=== PATIENT | female | born 1950 | race American Indian/Alaskan Native ===

== ENCOUNTER 2018-05-12 13:02 | Emergency (ER) | payer BC, OTHER ==
[2018-05-12 13:02] VITALS: BMI 40.4
[2018-05-12] MEDS ORDERED: Naproxen 550 mg Tab PO STA (13:49)
--- NOTE | 2018-05-12 13:56 | ED PDOC ---
Arrival/HPI - General Chief Complaint: Lower Extremity Problem/Injury Time Seen by Provider: 05/12/18 13:41 Historian: Patient, Family - History of Present Illness Narrative History of Present Illness (Text): 05/12/18 13:51 Pt is a 68 yr old female with PMH of DMII who presents to the ED c/o left thigh and LBP after walking to the gym and spin class. Pt says she woke up today with intense pain in her left thigh that travels to the left LS area but is not quite sure if it starts in her back first. Says the pain is worse on standing and walking and improves with sitting and rest. Denies trauma or a fall, no head injury, denies fever, n/v/d numbness of the lower extremities, change in bowel or bladder, or recent travel. Pt is requesting food and says she only had a banana this morning. Time/Duration: 24 hours Symptom Onset: Sudden Symptom Course: Unchanged Quality: Aching Severity Level: 6 Activities at Onset: Light Context: Standing, Walking, Exertion Past Medical History - Provider Review Nursing Documentation Reviewed: Yes - Travel History Have you recently traveled outside [place] w/in the past 3 mons?: No - Infectious Disease Hx of Infectious Diseases: None - Tetanus Immunization Tetanus Immunization: Unknown - Past Medical History Past Medical History: No Previous - Cardiac Hx Cardiac Disorders: No - Pulmonary Hx Respiratory Disorders: No - Neurological Hx Neurological Disorder: No - HEENT Hx HEENT Disorder: No - Renal Hx Renal Disorder: No - Endocrine/Metabolic Hx Endocrine Disorders: Yes Hx Diabetes Mellitus Type 2: Yes - Hematological/Oncological Hx Blood Disorders: No - Integumentary Hx Dermatological Disorder: No - Musculoskeletal/Rheumatological Hx Musculoskeletal Disorders: No - Gastrointestinal Hx Gastrointestinal Disorders: No - Genitourinary/Gynecological Hx Genitourinary Disorders: No - Psychiatric Hx Psychophysiologic Disorder: No Hx Substance Use: No - Surgical History Other/Comment: fibroid tumor removal - Anesthesia Hx Anesthesia: No Hx Anesthesia Reactions: No Hx Malignant Hyperthermia: No - Suicidal Assessment Feels Threatened In Home Enviroment: No Family/Social History - Physician Review Nursing Documentation Reviewed: Yes Family/Social History: Unknown Family HX Smoking Status: Never Smoked Hx Alcohol Use: No Hx Substance Use: No Hx Substance Use Treatment: No Allergies/Home Meds Allergies/Adverse Reactions: Allergies No Known Allergies Allergy (Verified 05/12/18 13:05) Home Medications: Home Meds Medication Instructions Recorded Confirmed Metformin HCl [Metformin] 1,000 mg PO BID 04/02/15 05/12/18 Review of Systems - Review of Systems Constitutional: Normal Eyes: Normal ENT: Normal Respiratory: Normal Cardiovascular: Normal Gastrointestinal: Normal Genitourinary Female: Normal Musculoskeletal: Normal, Arthralgias, Back Pain (low back and buttocks), Myalgias Skin: Normal Neurological: Normal Endocrine: Normal Hemo/Lymphatic: Normal Psychiatric: Normal Physical Exam Vital Signs Reviewed: Yes Vital Signs Temp Pulse Resp BP Pulse Ox 05/12/18 16:26 98 F 75 19 156/52 H 99 05/12/18 16:00 98.6 F 75 19 159/82 H 99 05/12/18 14:51 98 F 85 19 174/63 H 96 05/12/18 13:05 99.0 F 73 16 195/78 H 98 Temperature: Afebrile Blood Pressure: Hypertensive Pulse: Regular Respiratory Rate: Normal Appearance: Positive for: Well-Appearing, Non-Toxic, Comfortable Pain Distress: Moderate Mental Status: Positive for: Alert and Oriented X 3 - Systems Exam Head: Present: Atraumatic, Normocephalic Pupils: Present: PERRL Extroacular Muscles: Present: EOMI Conjunctiva: Present: Normal Mouth: Present: Moist Mucous Membranes Neck: Present: Normal Range of Motion. No: Paraspinal Tenderness Respiratory/Chest: Present: Clear to Auscultation, Good Air Exchange. No: Respiratory Distress, Accessory Muscle Use Cardiovascular: Present: Regular Rate and Rhythm, Normal S1, S2. No: Murmurs Abdomen: No: Tenderness, Distention, Peritoneal Signs Back: Present: Normal Inspection, Paraspinal Tenderness (left SI jt pain ), Other (positive left ARIAN ). No: CVA Tenderness, Midline Tenderness, Pain with Leg Raise Upper Extremity: Present: Normal Inspection, Normal ROM, NORMAL PULSES. No: Cyanosis, Edema Lower Extremity: Present: Normal Inspection, NORMAL PULSES, Normal ROM, Neurovascularly Intact, Capillary Refill < 2 s. No: Edema, CALF TENDERNESS, Cyanosis, Jarek's Sign, Tenderness, Swelling, Erythema, Temperature Abnormalties Neurological: Present: GCS=15, CN II-XII Intact, Speech Normal, Motor Func Grossly Intact, Normal Sensory Function Skin: Present: Warm, Dry, Normal Color. No: Rashes Psychiatric: Present: Alert, Oriented x 3, Normal Insight, Normal Concentration Medical Decision Making ED Course and Treatment: 05/12/18 13:57 Impression Pt is a 68 yr old female with PMH of DMII who presents to the ED c/o left thigh and LBP after riding her bike to the gym the other day. (+) ARIAN L side, (-) SLR, (-) Jarek's and no calf tenderness bilateral, SILT with distal pulses 2+ bilateral LE Plan CT of LS Naprosyn for pain and inflammation Progress Note Pt ate a granola bar and proceeded to vomit x4 times then had some water 05/12/18 15:42 CT of LS indicates joint space narrowing and disc bulge at L3-L4 Discussed findings with pt and friend at bedside; pt added that she actually walked a lot in the last 2 days and also did a 40 min spin class yesterday; she feels that she strained herself. Advised to take naprosyn q12 and use wet heat at home on the thigh, and lidocaine patches q24hrs as needed f/u with PMD in the next few days; may require MRI and PT VSS on dc and ambulated well 05/12/18 22:55 - RAD Interpretation Radiology Orders: 05/12/18 13:45 LUMBAR SPINE W/O CONTRAST [CT] Stat - Medication Orders Current Medication Orders: Discontinued Medications Naproxen (Anaprox Ds) 550 mg PO STAT STA Stop: 05/12/18 13:50 Last Admin: 05/12/18 14:52 Dose: 550 mg Disposition/Present on Arrival - Present on Arrival Any Indicators Present on Arrival: Yes History of DVT/PE: No History of Uncontrolled Diabetes: No Urinary Catheter: No History of Decub. Ulcer: No History Surgical Site Infection Following: None - Disposition Have Diagnosis and Disposition been Completed?: Yes Diagnosis: Muscle strain of gluteal region, Sacroiliac inflammation, Disc degeneration, lumbar, Bulging of intervertebral disc Disposition: HOME/ ROUTINE Disposition Time: 15:50 Patient Plan: Discharge Condition: GOOD Discharge Instructions (ExitCare): Low Back Pain (DC), Muscle Strain (DC) Additional Instructions: INESSA WILLS, thank you for letting us take care of you today. Your provider was Roxanne Simmons MD and you were treated for MUSCLE STRAIN AND LOW BACK PAIN. The emergency medical care you received today was directed at your acute symptoms. If you were prescribed any medication, please fill it and take as directed. It may take several days for your symptoms to resolve. Return to the Emergency Department if your symptoms worsen, do not improve, or if you have any other problems. Continue to be active but make sure to not over do it and take a break when you need to If pain continues, ask your doctor to order an MRI and Physical Therapy To assist thigh and back pain healing, wet a towel with very warm water, wring it out and place it over the affected area Please contact your doctor or call one of the physicians/clinics you have been referred to that are listed on the Patient Visit Information form that is included in your discharge packet. Bring any paperwork you were given at discharge with you along with any medications you are taking to your follow up visit. Our treatment cannot replace ongoing medical care by a primary care provider outside of the emergency department. Thank you for allowing the [facility] team to be part of your care today. If you had an X-Ray or CT scan: A Radiologist will review the ED reading if any change in treatment is needed we will contact you. Prescriptions: Lidocaine 1 each TP DAILY 5 Days #5 adh..patch Naproxen 500 mg PO Q12 #10 tablet Forms: [employer] (Italian)
[2018-05-12 14:58] VITALS: RESP 19
--- NOTE | 2018-05-12 15:11 | CT ---
PROCEDURE: CT Lumbar Spine without contrast HISTORY: Back pain and leg weakness COMPARISON: None. TECHNIQUE: Axial computed tomography images were obtained of the lumbar spine without the use of intravenous contrast. Coronal and sagittal reformatted images were created and reviewed. Radiation dose: Total exam DLP = 1537.96 mGy-cm. This CT exam was performed using one or more of the following dose reduction techniques: Automated exposure control, adjustment of the mA and/or kV according to patient size, and/or use of iterative reconstruction technique. FINDINGS: VERTEBRAE: Unremarkable. No fracture. Normal alignment. DISCS/SPINAL CANAL/NEURAL FORAMINA: Multilevel degenerative spondylosis. L1-2: Disc space narrowing more so along the posterior disc margin with small amount of vacuum phenomena. . Broad-based broad-based disc ridge complex associate with a tiny calcification along the right parasagittal posterior annulus. Mild compressive effects on the ventral surface of the thecal sac however the disc is quite large along the right posterolateral border and results in stenosis right lateral recess stenosis and right foraminal stenosis. . Facets are slightly overgrown. . L2-3: There is disc space narrowing more so along the posterior disc margin with moderate-sized disc ridge complex that extends into the inferior margins of both exit foramina. There is bilateral lateral recess and mild central canal stenosis. . Facet joints are hypertrophic. Exit foramina are narrowed bilaterally right greater than left. L3-4: Mild posterior disc space narrowing. Small broad-based disc bulge ridge complex asymmetrically larger on the right side than left with some flattening of the ventral surface of the thecal sac more so on the right. Small amount of vacuum disc phenomena present. Central canal appears adequate. Facets are mildly hypertrophic. Exit foramina are mildly narrowed right greater than left. . L4-5: Mild disc space narrowing more so along the posterior disc margin with endplate eburnation/ sclerosis. . . Broad-based disc ridge complex associated with a calcification along the posterior annulus more so on the right side results in compressive effects on the ventral surface of the thecal sac more so on the right side. The facets are hypertrophic with focal calcification along the left ligamentum flavum. There is some mild to moderate central canal stenosis. Exit foramina are stenotic right greater than left. L5-S1: Mild disc space narrowing with small amount of vacuum disc phenomena. . Small broad-based bulge of the posterior annulus (with small calcification along the posterior margin of the annulus) extends into the proximal inferior margins of both exit foramina. The facet joints are hypertrophic. Bilateral lateral recess narrowing with mild flattening the ventral surface of the thecal sac. Exit foramina are stenotic bilaterally. PARASPINAL SOFT TISSUES: Unremarkable. OTHER FINDINGS: None. IMPRESSION: Unremarkable CT of Lumbar Spine.
[2018-05-12 16:21] VITALS: PULSE 75; O2SAT 99
[2018-05-12 16:27] VITALS: BP 156/52; TEMP 98
== END 2018-05-12 16:26 | disposition home or self-care (01) ==
LOC: ED 13:02
DX: M51.36 Other intervertebral disc degeneration, lumbar region (principal); S76.012A Strain of muscle, fascia and tendon of left hip, initial encounter; Y93.A9 Activity, other involving cardiorespiratory exercise; Y92.39 Other specified sports and athletic area as the place of occurrence of the external cause; M46.1 Sacroiliitis, not elsewhere classified; E11.9 Type 2 diabetes mellitus without complications